=== PATIENT | female | born 1945 | race Caucasian/White ===

== ENCOUNTER 2022-08-11 08:55 | Inpatient (IN) | payer OTHER ==
[2022-08-07 17:25] VITALS: BMI 35.7
[2022-08-11] MEDS ORDERED: ROPIVACAINE HCL/PF 100 MG/20 ML VIAL ONE (10:42)
[2022-08-11] MEDS ORDERED: MIDAZOLAM HCL 2 MG/2 ML SINGLE DOSE VIAL ONE ×2 (10:42→11:58)
[2022-08-11] MEDS ORDERED: CEFAZOLIN 2 GM in DEXTROSE 5%-WATER - 50 ML IVPB ONE (11:00)
[2022-08-11] MEDS ORDERED: TRANEXAMIC ACID 1000 MG/10 ML VIAL IVPUSH ONE (11:00)
[2022-08-11] MEDS ORDERED: BUPIVACAINE HCL 50 ML ONE (11:09)
[2022-08-11] MEDS ORDERED: VANCOMYCIN 1,000 MG VIAL (RESTRICTED TO ID ONLY) ONE (11:20)
[2022-08-11] MEDS ORDERED: oxyCODONE HCL 5 MG TABLET PO PRN (13:06)
[2022-08-11] MEDS ORDERED: ONDANSETRON 4 MG/2 ML VIAL IVPUSH PRN ×2 (13:06→14:01)
[2022-08-11] MEDS ORDERED: LACTATED RINGERS SOLUTION 1,000 ML IV SCH ×2 (13:15→14:15)
[2022-08-11] MEDS ORDERED: PROPOFOL 20 ML ONE ×2 (13:23→14:02)
[2022-08-11] MEDS ORDERED: BUPIVICAINE 0.25%/MORPH PF/KETOROLAC - 51ML DISP.SYRINGE IA ONE ×2 (13:28→13:50)
[2022-08-11] MEDS ORDERED: VANCOMYCIN 1,000 MG VIAL (RESTRICTED TO ID ONLY) IVPB ONE (13:40)
[2022-08-11] MEDS ORDERED: MAG HYDROX/AL HYDROX/SIMETH 30 ML UNIT-DOSE CUP PO PRN (14:01)
[2022-08-11] MEDS ORDERED: MAGNESIUM HYDROX 2400MG/30ML ORAL SUSPENSION 30 ML CUP PO PRN (14:01)
[2022-08-11] MEDS ORDERED: ALPRAZolam 0.25 MG TABLET PO PRN (14:28)
[2022-08-11] MEDS: ACETAMINOPHEN 1000 MG/100 ML BAG IVPB PRN (14:30)
[2022-08-11] MEDS ORDERED: ACETAMINOPHEN INJECTION 100 ML IVPB ONE (14:45)
[2022-08-11] MEDS: CEFAZOLIN SODIUM 2 GM in DEXTROSE 5%-WATER 100 ML IVPB SCH (20:35)
[2022-08-11] MEDS: ROSUVASTATIN CA 10 MG TABLET PO SCH (21:35)
[2022-08-11] MEDS: FAMOTIDINE 20 MG TABLET PO SCH (21:35)
[2022-08-11] MEDS: SENNOSIDES/DOCUSATE COMBO (SENNA PLUS) TABLET (UD) PO SCH (21:35)
[2022-08-11] MEDS ORDERED: GABAPENTIN 300 MG CAPSULE PO SCH (22:00)
[2022-08-11] MEDS ORDERED: FAMOTIDINE 20 MG TABLET PO SCH (22:00)
[2022-08-12] MEDS: CEFAZOLIN SODIUM 2 GM in DEXTROSE 5%-WATER 100 ML IVPB SCH ×2 (04:36→11:14)
[2022-08-12] MEDS: ACETAMINOPHEN 1000 MG/100 ML BAG IVPB PRN ×2 (06:10→13:09)
[2022-08-12] MEDS ORDERED: MAGNESIUM SULF 50% (8.12 MEQ/2 ML-1 GM VIAL) IVPB ONE (08:15)
[2022-08-12 08:26] LABS: HEMATOCRIT 31.3 % (32.4-45.2); HEMOGLOBIN 10.8 G/dL (10.7-15.3); MCH 31.8 pg (25.7-33.7); MCHC 34.5 g/dl (32.0-36.0); MEAN CELL VOLUME 92.2 fl (80-96); MEAN PLT VOLUME 10.9 fl (7.5-11.1); PLATELET COUNT 142.7 10^3/uL (134-434); RDW 13.9 % (11.6-15.6); WHITE BLOOD COUNT 6.6 10^3/uL (4.0-10.8)
[2022-08-12 08:31] LABS: CALCIUM 8.5 mg/dl (8.5-10); CREATININE 0.8 mg/dl (0.55-1.3)
[2022-08-12] MEDS ORDERED: MAGNESIUM 1GM/D5W - 1 GM/100 ML IVPB IVPB ONE (08:45)
[2022-08-12] MEDS: metoPROLOL SUCCINATE 25 MG TAB.SR.24H (FP) PO SCH (09:04)
[2022-08-12] MEDS: LACTOBACILLUS ACIDOPHILUS 1 TABLET PO SCH (09:04)
[2022-08-12] MEDS: MULTIVITAMINS (DAILY MVI) TABLET (FP) PO SCH (09:04)
[2022-08-12] MEDS: FAMOTIDINE 20 MG TABLET PO SCH ×2 (09:04→21:49)
[2022-08-12] MEDS: SENNOSIDES/DOCUSATE COMBO (SENNA PLUS) TABLET (UD) PO SCH ×2 (09:06→21:49)
[2022-08-12] MEDS: PANTOPRAZOLE 40 MG TABLET PO SCH (09:06)
[2022-08-12] MEDS ORDERED: PANTOPRAZOLE 40 MG TABLET PO SCH (10:00)
[2022-08-12] MEDS ORDERED: APIXABAN 2.5 MG TABLET PO SCH (10:00)
[2022-08-12] MEDS ORDERED: ASPIRIN 325 MG TABLET PO SCH ×3 (10:00→22:00)
[2022-08-12] MEDS ORDERED: ENOXAPARIN NA (PORCINE) 80 MG/0.8 ML DISP.SYRIN SQ SCH (12:15)
[2022-08-12] MEDS: ENOXAPARIN NA (PORCINE) 80 MG/0.8 ML DISP.SYRIN SQ SCH ×2 (12:21→21:48)
[2022-08-12] MEDS ORDERED: VANCOMYCIN 1 GM in D5W (PRE-DOCKED) 1,000 MG/250 ML IVPB ONE (15:42)
[2022-08-12] MEDS ORDERED: SODIUM CHLORIDE 500 ML IV STA (15:43)
[2022-08-12] MEDS ORDERED: ACETAMINOPHEN 1000 MG/100 ML BAG IVPB STA (19:31)
[2022-08-12 20:39] LABS: EPI CELLS 6 /uL (0-25.1); HYALINE CASTS 0 /uL (0-3.1); PH,URINE 6.5 (5.0-8.0); URINE APPEARANCE CLEAR; URINE BACTERIA 1 /uL (0-1359); URINE BILIRUBIN NEGATIVE (NEGATIVE); URINE COLOR YELLOW; URINE GLUCOSE (UA) NEGATIVE (NEGATIVE); URINE KETONE NEGATIVE (NEGATIVE); URINE LEUK ESTERASE NEGATIVE (NEGATIVE); URINE NITRITE NEGATIVE (NEGATIVE); URINE PROTEIN NEGATIVE (NEGATIVE); URINE RBC 57 /uL (0-23.9); URINE UROBILINOGEN 0.2 mg/dL (0.2-1.0); URINE WBC 12 /uL (0-25.8)
[2022-08-12] MEDS: MUPIROCIN 2% TOPICAL OINTMENT FOR DECOLONIZATION NS SCH (21:48)
[2022-08-12] MEDS: ROSUVASTATIN CA 10 MG TABLET PO SCH (21:48)
[2022-08-12] MEDS: CHLORHEXIDINE GLUCONATE 4% CLEANSER FOR DECOLONIZATION TP SCH (21:48)
[2022-08-12] MEDS: oxyCODONE HCL 5 MG TABLET PO PRN (21:49)
[2022-08-13] MEDS ORDERED: ACETAMINOPHEN 1000 MG/100 ML BAG IVPB STA (06:11)
[2022-08-13 07:36] LABS: HEMATOCRIT 35.1 % (32.4-45.2); HEMOGLOBIN 11.7 GM/dL (10.7-15.3); MCH 30.1 pg (25.7-33.7); MCHC 33.2 g/dl (32.0-36.0); MEAN CELL VOLUME 90.6 fl (80-96); MEAN PLT VOLUME 11.3 fl (7.5-11.1); PLATELET COUNT 164 10^3/uL (134-434); RBC 3.87 M/mm3 (3.60-5.2); RDW 13.5 % (11.6-15.6); WHITE BLOOD COUNT 9.7 K/mm3 (4.0-10.0)
[2022-08-13] MEDS: ENOXAPARIN NA (PORCINE) 80 MG/0.8 ML DISP.SYRIN SQ SCH ×2 (09:34→21:12)
[2022-08-13] MEDS: LACTOBACILLUS ACIDOPHILUS 1 TABLET PO SCH (09:35)
[2022-08-13] MEDS: PANTOPRAZOLE 40 MG TABLET PO SCH (09:35)
[2022-08-13] MEDS: MULTIVITAMINS (DAILY MVI) TABLET (FP) PO SCH (09:35)
[2022-08-13] MEDS: SENNOSIDES/DOCUSATE COMBO (SENNA PLUS) TABLET (UD) PO SCH ×2 (09:36→21:12)
[2022-08-13] MEDS: FAMOTIDINE 20 MG TABLET PO SCH ×2 (09:36→21:12)
[2022-08-13] MEDS: MUPIROCIN 2% TOPICAL OINTMENT FOR DECOLONIZATION NS SCH ×2 (09:36→21:12)
[2022-08-13] MEDS ORDERED: PIPERACILLIN/TAZOB 3.375 GM 3.375 GM in DEXTROSE 5%-WATER - 50 ML IVPB ONE (10:00)
[2022-08-13] MEDS ORDERED: VANCOMYCIN/WATER FOR INJ (PEG) 1,000 MG/200 ML BAG IVPB ONE (10:00)
[2022-08-13] MEDS: metoPROLOL SUCCINATE 25 MG TAB.SR.24H (FP) PO SCH (11:00)
[2022-08-13] MEDS: SODIUM CHLORIDE 1,000 ML IV SCH (12:41)
[2022-08-13] MEDS: ACETAMINOPHEN 500 MG TABLET (FP) PO SCH ×2 (13:04→18:09)
[2022-08-13] MEDS: oxyCODONE HCL 5 MG TABLET PO PRN ×3 (17:46→22:33)
[2022-08-13] MEDS: PIPERACILLIN/TAZOB 3.375 GM 3.375 GM in DEXTROSE 5%-WATER - 50 ML IVPB SCH (17:48)
[2022-08-13] MEDS ORDERED: ALPRAZolam 0.25 MG TABLET PO PRN (19:23)
[2022-08-13] MEDS ORDERED: MAG HYDROX/AL HYDROX/SIMETH 30 ML UNIT-DOSE CUP PO PRN (19:23)
[2022-08-13] MEDS ORDERED: MAGNESIUM HYDROX 2400MG/30ML ORAL SUSPENSION 30 ML CUP PO PRN (19:23)
[2022-08-13] MEDS: ROSUVASTATIN CA 10 MG TABLET PO SCH (21:11)
[2022-08-13] MEDS: CHLORHEXIDINE GLUCONATE 4% CLEANSER FOR DECOLONIZATION TP SCH (21:12)
[2022-08-14] MEDS: ACETAMINOPHEN 500 MG TABLET (FP) PO SCH ×4 (01:05→18:15)
[2022-08-14] MEDS: PIPERACILLIN/TAZOB 3.375 GM 3.375 GM in DEXTROSE 5%-WATER - 50 ML IVPB SCH ×3 (01:47→18:12)
[2022-08-14] MEDS: SODIUM CHLORIDE 1,000 ML IV SCH ×2 (07:00→11:30)
[2022-08-14 07:03] LABS: BASO % 0.3 % (0-2.0); EOS % 1.2 % (0-4.5); HEMATOCRIT 31.3 % (32.4-45.2); HEMOGLOBIN 10.3 GM/dL (10.7-15.3); LYMPH % 26.2 % (8-40); MCH 30.3 pg (25.7-33.7); MEAN CELL VOLUME 91.8 fl (80-96); MEAN PLT VOLUME 10.9 fl (7.5-11.1); MONO % 9.7 % (3.8-10.2); NEUT % 62.6 % (42.8-82.8); PLATELET COUNT 174 10^3/uL (134-434); RBC 3.41 M/mm3 (3.60-5.2); RDW 13.2 % (11.6-15.6); WHITE BLOOD COUNT 8.4 K/mm3 (4.0-10.0)
[2022-08-14 07:46] LABS: ALBUMIN 2.3 g/dl (3.4-5.0); MAGNESIUM 1.7 mg/dL (1.8-2.4)
[2022-08-14 07:47] LABS: BLOOD UREA NITROGEN 14.9 mg/dL (7-18)
[2022-08-14 07:49] LABS: CREATININE 0.8 mg/dL (0.55-1.3)
[2022-08-14 07:50] LABS: PHOSPHOROUS 2.6 mg/dL (2.5-4.9)
[2022-08-14 07:51] LABS: BILIRUBIN,TOTAL 0.8 mg/dL (0.2-1); TOT PROT 5.1 g/dl (6.4-8.2)
[2022-08-14] MEDS ORDERED: MAGNESIUM OXIDE 400 MG TABLET (FP) PO ONE (08:03)
[2022-08-14] MEDS ORDERED: MAGNESIUM 1GM/D5W 100ML - 100 ML IVPB IVPB ONE (08:30)
[2022-08-14] MEDS: SENNOSIDES/DOCUSATE COMBO (SENNA PLUS) TABLET (UD) PO SCH ×2 (09:31→21:18)
[2022-08-14] MEDS: LACTOBACILLUS ACIDOPHILUS 1 TABLET PO SCH (09:32)
[2022-08-14] MEDS: FAMOTIDINE 20 MG TABLET PO SCH ×2 (09:32→21:18)
[2022-08-14] MEDS: PANTOPRAZOLE 40 MG TABLET PO SCH (09:32)
[2022-08-14] MEDS: MULTIVITAMINS (DAILY MVI) TABLET (FP) PO SCH (09:33)
[2022-08-14] MEDS: ENOXAPARIN NA (PORCINE) 80 MG/0.8 ML DISP.SYRIN SQ SCH ×2 (09:34→21:18)
[2022-08-14] MEDS: MUPIROCIN 2% TOPICAL OINTMENT FOR DECOLONIZATION NS SCH ×2 (09:35→21:19)
[2022-08-14] MEDS: POLYETHYLENE GLYCOL (HEALTHYLAX) 3350 17 GM PACKET PO SCH (09:35)
[2022-08-14] MEDS: oxyCODONE HCL 5 MG TABLET PO PRN (13:16)
[2022-08-14] MEDS: ROSUVASTATIN CA 10 MG TABLET PO SCH (21:18)
[2022-08-14] MEDS: CHLORHEXIDINE GLUCONATE 4% CLEANSER FOR DECOLONIZATION TP SCH (21:19)
[2022-08-15] MEDS: oxyCODONE HCL 5 MG TABLET PO PRN ×3 (00:38→16:02)
[2022-08-15] MEDS: ONDANSETRON 4 MG/2 ML VIAL IVPUSH PRN ×2 (00:39→17:49)
[2022-08-15] MEDS: ACETAMINOPHEN 500 MG TABLET (FP) PO SCH ×4 (00:40→19:02)
[2022-08-15] MEDS: PIPERACILLIN/TAZOB 3.375 GM 3.375 GM in DEXTROSE 5%-WATER - 50 ML IVPB SCH ×2 (01:12→09:46)
[2022-08-15 07:10] LABS: BASO % 0.4 % (0-2.0); EOS % 4.4 % (0-4.5); HEMATOCRIT 28.7 % (32.4-45.2); HEMOGLOBIN 9.6 GM/dL (10.7-15.3); LYMPH % 23.1 % (8-40); MCH 30.5 pg (25.7-33.7); MCHC 33.3 g/dl (32.0-36.0); MEAN CELL VOLUME 91.5 fl (80-96); MEAN PLT VOLUME 10.4 fl (7.5-11.1); MONO % 11.3 % (3.8-10.2); NEUT % 60.8 % (42.8-82.8); PLATELET COUNT 199 10^3/uL (134-434); RBC 3.14 M/mm3 (3.60-5.2); RDW 13.1 % (11.6-15.6); WHITE BLOOD COUNT 7.1 K/mm3 (4.0-10.0)
[2022-08-15] MEDS ORDERED: SODIUM CHLORIDE 0.9% 500 ML INFUS.BAG IV ONE ×2 (07:50→10:50)
[2022-08-15 07:52] LABS: BLOOD UREA NITROGEN 14.5 mg/dL (7-18)
[2022-08-15 07:54] LABS: ALBUMIN 2.1 g/dl (3.4-5.0); CALCIUM 8.2 mg/dL (8.5-10.1); MAGNESIUM 2.1 mg/dL (1.8-2.4)
[2022-08-15 07:57] LABS: PHOSPHOROUS 2.8 mg/dL (2.5-4.9)
[2022-08-15 07:58] LABS: CREATININE 0.7 mg/dL (0.55-1.3); TOT PROT 4.9 g/dl (6.4-8.2)
[2022-08-15 07:59] LABS: BILIRUBIN,TOTAL 0.7 mg/dL (0.2-1)
[2022-08-15] MEDS: ENOXAPARIN NA (PORCINE) 80 MG/0.8 ML DISP.SYRIN SQ SCH (09:10)
[2022-08-15] MEDS: LACTOBACILLUS ACIDOPHILUS 1 TABLET PO SCH (09:10)
[2022-08-15] MEDS: PANTOPRAZOLE 40 MG TABLET PO SCH (09:10)
[2022-08-15] MEDS: POLYETHYLENE GLYCOL (HEALTHYLAX) 3350 17 GM PACKET PO SCH (09:10)
[2022-08-15] MEDS: SENNOSIDES/DOCUSATE COMBO (SENNA PLUS) TABLET (UD) PO SCH ×2 (09:10→21:24)
[2022-08-15] MEDS: metoPROLOL SUCCINATE 25 MG TAB.SR.24H (FP) PO SCH (09:11)
[2022-08-15] MEDS: MULTIVITAMINS (DAILY MVI) TABLET (FP) PO SCH (09:11)
[2022-08-15] MEDS: FAMOTIDINE 20 MG TABLET PO SCH ×2 (09:12→21:24)
[2022-08-15] MEDS: MUPIROCIN 2% TOPICAL OINTMENT FOR DECOLONIZATION NS SCH ×2 (09:50→21:28)
[2022-08-15] MEDS: ROSUVASTATIN CA 10 MG TABLET PO SCH (21:24)
[2022-08-15] MEDS: APIXABAN 5 MG TABLET PO SCH (21:24)
[2022-08-15] MEDS: CHLORHEXIDINE GLUCONATE 4% CLEANSER FOR DECOLONIZATION TP SCH (21:28)
[2022-08-16] MEDS: ACETAMINOPHEN 500 MG TABLET (FP) PO SCH ×5 (00:42→20:17)
[2022-08-16] MEDS: oxyCODONE HCL 5 MG TABLET PO PRN ×3 (00:42→16:32)
[2022-08-16 07:00] LABS: BASO % 0.4 % (0-2.0); EOS % 5.8 % (0-4.5); HEMATOCRIT 29.8 % (32.4-45.2); HEMOGLOBIN 9.7 GM/dL (10.7-15.3); LYMPH % 33.7 % (8-40); MCHC 32.4 g/dl (32.0-36.0); MEAN CELL VOLUME 92.4 fl (80-96); MEAN PLT VOLUME 9.7 fl (7.5-11.1); MONO % 10.5 % (3.8-10.2); NEUT % 49.6 % (42.8-82.8); PLATELET COUNT 241 10^3/uL (134-434); RBC 3.23 M/mm3 (3.60-5.2); RDW 12.9 % (11.6-15.6)
[2022-08-16 07:19] LABS: CALCIUM 8.6 mg/dL (8.5-10.1)
[2022-08-16 07:20] LABS: ALBUMIN 2.1 g/dl (3.4-5.0); BLOOD UREA NITROGEN 14.7 mg/dL (7-18)
[2022-08-16 07:23] LABS: CREATININE 0.6 mg/dL (0.55-1.3)
[2022-08-16 07:25] LABS: BILIRUBIN,TOTAL 0.8 mg/dL (0.2-1); TOT PROT 5.1 g/dl (6.4-8.2)
[2022-08-16] MEDS: LACTOBACILLUS ACIDOPHILUS 1 TABLET PO SCH (09:22)
[2022-08-16] MEDS: SENNOSIDES/DOCUSATE COMBO (SENNA PLUS) TABLET (UD) PO SCH ×2 (09:22→21:16)
[2022-08-16] MEDS: FAMOTIDINE 20 MG TABLET PO SCH ×2 (09:22→21:16)
[2022-08-16] MEDS: APIXABAN 5 MG TABLET PO SCH ×2 (09:22→21:16)
[2022-08-16] MEDS: MULTIVITAMINS (DAILY MVI) TABLET (FP) PO SCH (09:22)
[2022-08-16] MEDS: POLYETHYLENE GLYCOL (HEALTHYLAX) 3350 17 GM PACKET PO SCH (09:22)
[2022-08-16] MEDS: metoPROLOL SUCCINATE 25 MG TAB.SR.24H (FP) PO SCH (09:23)
[2022-08-16] MEDS: PANTOPRAZOLE 40 MG TABLET PO SCH (09:23)
[2022-08-16] MEDS: MUPIROCIN 2% TOPICAL OINTMENT FOR DECOLONIZATION NS SCH (16:31)
[2022-08-16] MEDS ORDERED: MAG HYDROX/AL HYDROX/SIMETH 30 ML UNIT-DOSE CUP PO PRN (19:24)
[2022-08-16] MEDS ORDERED: ONDANSETRON 4 MG/2 ML VIAL IVPUSH PRN (19:24)
[2022-08-16] MEDS ORDERED: MAGNESIUM HYDROX 2400MG/30ML ORAL SUSPENSION 30 ML CUP PO PRN (19:24)
[2022-08-16] MEDS: ROSUVASTATIN CA 10 MG TABLET PO SCH (21:16)
[2022-08-16] MEDS ORDERED: MUPIROCIN 2% TOPICAL OINTMENT FOR DECOLONIZATION NS SCH (22:00)
[2022-08-16] MEDS ORDERED: CHLORHEXIDINE GLUCONATE 4% CLEANSER FOR DECOLONIZATION TP SCH (22:00)
[2022-08-17] MEDS ORDERED: ACETAMINOPHEN 500 MG TABLET (FP) PO SCH (01:00)
[2022-08-17] MEDS: ACETAMINOPHEN 500 MG TABLET (FP) PO SCH ×4 (02:03→19:53)
[2022-08-17] MEDS ORDERED: traMADol HCL 50 MG TABLET PO ONE (08:15)
[2022-08-17 08:34] LABS: BASO % 0.4 % (0-2.0); HEMATOCRIT 28.1 % (32.4-45.2); HEMOGLOBIN 9.6 GM/dL (10.7-15.3); LYMPH % 26.5 % (8-40); MCH 31.3 pg (25.7-33.7); MCHC 34.2 g/dl (32.0-36.0); MEAN CELL VOLUME 91.5 fl (80-96); MEAN PLT VOLUME 8.9 fl (7.5-11.1); MONO % 12.2 % (3.8-10.2); NEUT % 55.9 % (42.8-82.8); PLATELET COUNT 271 10^3/uL (134-434); RBC 3.07 M/mm3 (3.60-5.2); RDW 13.1 % (11.6-15.6); WHITE BLOOD COUNT 7.3 K/mm3 (4.0-10.0)
[2022-08-17 08:55] LABS: ALBUMIN 2.1 g/dl (3.4-5.0); CALCIUM 8.6 mg/dL (8.5-10.1); MAGNESIUM 2.1 mg/dL (1.8-2.4)
[2022-08-17 08:57] LABS: CREATININE 0.6 mg/dL (0.55-1.3)
[2022-08-17 08:59] LABS: BILIRUBIN,TOTAL 0.5 mg/dL (0.2-1); TOT PROT 5.2 g/dl (6.4-8.2)
[2022-08-17] MEDS ORDERED: metoPROLOL SUCCINATE 25 MG TAB.SR.24H (FP) PO SCH (10:00)
[2022-08-17] MEDS ORDERED: POLYETHYLENE GLYCOL (HEALTHYLAX) 3350 17 GM PACKET PO SCH (10:00)
[2022-08-17] MEDS: MULTIVITAMINS (DAILY MVI) TABLET (FP) PO SCH (10:04)
[2022-08-17] MEDS: PANTOPRAZOLE 40 MG TABLET PO SCH (10:04)
[2022-08-17] MEDS: APIXABAN 5 MG TABLET PO SCH ×2 (10:04→21:43)
[2022-08-17] MEDS: FAMOTIDINE 20 MG TABLET PO SCH ×2 (10:05→21:43)
[2022-08-17] MEDS: LACTOBACILLUS ACIDOPHILUS 1 TABLET PO SCH (10:05)
[2022-08-17] MEDS: metoPROLOL SUCCINATE 25 MG TAB.SR.24H (FP) PO SCH (10:05)
[2022-08-17] MEDS: SENNOSIDES/DOCUSATE COMBO (SENNA PLUS) TABLET (UD) PO SCH ×2 (10:05→21:43)
[2022-08-17] MEDS: POLYETHYLENE GLYCOL (HEALTHYLAX) 3350 17 GM PACKET PO SCH ×2 (13:16→21:43)
[2022-08-17] MEDS: ROSUVASTATIN CA 10 MG TABLET PO SCH (21:43)
[2022-08-18] MEDS: ACETAMINOPHEN 500 MG TABLET (FP) PO SCH ×4 (01:40→21:18)
[2022-08-18] MEDS: oxyCODONE HCL 5 MG TABLET PO PRN ×2 (06:16→14:45)
[2022-08-18 08:45] LABS: BASO % 0.6 % (0-2.0); EOS % 6.7 % (0-4.5); HEMOGLOBIN 9.7 GM/dL (10.7-15.3); LYMPH % 24.4 % (8-40); MCH 30.5 pg (25.7-33.7); MCHC 33.4 g/dl (32.0-36.0); MEAN CELL VOLUME 91.4 fl (80-96); MEAN PLT VOLUME 8.7 fl (7.5-11.1); MONO % 10.1 % (3.8-10.2); NEUT % 58.2 % (42.8-82.8); PLATELET COUNT 358 10^3/uL (134-434); RBC 3.18 M/mm3 (3.60-5.2); RDW 13.2 % (11.6-15.6)
[2022-08-18 09:16] LABS: ALBUMIN 2.1 g/dl (3.4-5.0); BLOOD UREA NITROGEN 13.7 mg/dL (7-18); CALCIUM 8.8 mg/dL (8.5-10.1); MAGNESIUM 2.1 mg/dL (1.8-2.4)
[2022-08-18 09:20] LABS: CREATININE 0.6 mg/dL (0.55-1.3)
[2022-08-18 09:22] LABS: BILIRUBIN,TOTAL 0.6 mg/dL (0.2-1); TOT PROT 5.4 g/dl (6.4-8.2)
[2022-08-18] MEDS: metoPROLOL SUCCINATE 25 MG TAB.SR.24H (FP) PO SCH (09:52)
[2022-08-18] MEDS: SENNOSIDES/DOCUSATE COMBO (SENNA PLUS) TABLET (UD) PO SCH ×2 (09:52→21:18)
[2022-08-18] MEDS: MULTIVITAMINS (DAILY MVI) TABLET (FP) PO SCH (09:53)
[2022-08-18] MEDS: PANTOPRAZOLE 40 MG TABLET PO SCH (09:53)
[2022-08-18] MEDS: APIXABAN 5 MG TABLET PO SCH ×2 (09:53→21:18)
[2022-08-18] MEDS: FAMOTIDINE 20 MG TABLET PO SCH ×2 (09:53→21:18)
[2022-08-18] MEDS: POLYETHYLENE GLYCOL (HEALTHYLAX) 3350 17 GM PACKET PO SCH ×2 (09:55→21:19)
[2022-08-18] MEDS: LACTOBACILLUS ACIDOPHILUS 1 TABLET PO SCH (09:55)
[2022-08-18] MEDS ORDERED: SODIUM CHLORIDE 500 ML IV STA (11:13)
[2022-08-18] MEDS ORDERED: SODIUM CHLORIDE 1,000 ML IV SCH (16:30)
[2022-08-18] MEDS: ALPRAZolam 0.25 MG TABLET PO PRN (21:18)
[2022-08-18] MEDS: ROSUVASTATIN CA 10 MG TABLET PO SCH (21:18)
[2022-08-19] MEDS: ACETAMINOPHEN 500 MG TABLET (FP) PO SCH ×4 (02:00→20:10)
[2022-08-19] MEDS: oxyCODONE HCL 5 MG TABLET PO PRN ×2 (06:42→21:03)
[2022-08-19 07:51] LABS: BASO % 0.5 % (0-2.0); EOS % 6.4 % (0-4.5); HEMATOCRIT 26.7 % (32.4-45.2); HEMOGLOBIN 8.9 GM/dL (10.7-15.3); LYMPH % 30.1 % (8-40); MCH 30.6 pg (25.7-33.7); MCHC 33.5 g/dl (32.0-36.0); MEAN CELL VOLUME 91.4 fl (80-96); MEAN PLT VOLUME 8.5 fl (7.5-11.1); MONO % 10.5 % (3.8-10.2); NEUT % 52.5 % (42.8-82.8); PLATELET COUNT 423 10^3/uL (134-434); RBC 2.92 M/mm3 (3.60-5.2); RDW 12.9 % (11.6-15.6); WHITE BLOOD COUNT 7.3 K/mm3 (4.0-10.0)
[2022-08-19 08:12] LABS: CALCIUM 8.6 mg/dL (8.5-10.1)
[2022-08-19 08:13] LABS: ALBUMIN 2.1 g/dl (3.4-5.0); BLOOD UREA NITROGEN 14.6 mg/dL (7-18); MAGNESIUM 2.1 mg/dL (1.8-2.4)
[2022-08-19 08:16] LABS: CREATININE 0.5 mg/dL (0.55-1.3)
[2022-08-19 08:17] LABS: BILIRUBIN,TOTAL 0.6 mg/dL (0.2-1)
[2022-08-19 08:18] LABS: TOT PROT 5.4 g/dl (6.4-8.2)
[2022-08-19] MEDS: metoPROLOL SUCCINATE 25 MG TAB.SR.24H (FP) PO SCH (09:19)
[2022-08-19] MEDS: FAMOTIDINE 20 MG TABLET PO SCH ×2 (09:19→21:04)
[2022-08-19] MEDS: SENNOSIDES/DOCUSATE COMBO (SENNA PLUS) TABLET (UD) PO SCH ×2 (09:19→21:03)
[2022-08-19] MEDS: PANTOPRAZOLE 40 MG TABLET PO SCH (09:19)
[2022-08-19] MEDS: APIXABAN 5 MG TABLET PO SCH ×2 (09:20→21:03)
[2022-08-19] MEDS: MULTIVITAMINS (DAILY MVI) TABLET (FP) PO SCH (09:20)
[2022-08-19] MEDS: POLYETHYLENE GLYCOL (HEALTHYLAX) 3350 17 GM PACKET PO SCH ×3 (09:20→21:04)
[2022-08-19] MEDS: LACTOBACILLUS ACIDOPHILUS 1 TABLET PO SCH (09:20)
[2022-08-19] MEDS: ALPRAZolam 0.25 MG TABLET PO PRN (21:03)
[2022-08-19] MEDS: ROSUVASTATIN CA 10 MG TABLET PO SCH (21:03)
[2022-08-20] MEDS: ACETAMINOPHEN 500 MG TABLET (FP) PO SCH ×3 (03:00→13:15)
[2022-08-20 03:56] VITALS: RESP 18
[2022-08-20] MEDS: oxyCODONE HCL 5 MG TABLET PO PRN (05:44)
[2022-08-20 08:19] LABS: BASO % 0.7 % (0-2.0); EOS % 6.7 % (0-4.5); HEMATOCRIT 28.8 % (32.4-45.2); HEMOGLOBIN 9.5 GM/dL (10.7-15.3); LYMPH % 22.8 % (8-40); MCH 30.4 pg (25.7-33.7); MCHC 33.1 g/dl (32.0-36.0); MEAN CELL VOLUME 91.8 fl (80-96); MEAN PLT VOLUME 8.5 fl (7.5-11.1); MONO % 10.9 % (3.8-10.2); NEUT % 58.9 % (42.8-82.8); PLATELET COUNT 460 10^3/uL (134-434); RBC 3.13 M/mm3 (3.60-5.2); RDW 13.1 % (11.6-15.6); WHITE BLOOD COUNT 6.7 K/mm3 (4.0-10.0)
[2022-08-20 08:56] LABS: ALBUMIN 2.2 g/dl (3.4-5.0); BLOOD UREA NITROGEN 12.9 mg/dL (7-18); CREATININE 0.5 mg/dL (0.55-1.3)
[2022-08-20 08:57] LABS: BILIRUBIN,TOTAL 0.5 mg/dL (0.2-1); TOT PROT 5.5 g/dl (6.4-8.2)
[2022-08-20] MEDS: FAMOTIDINE 20 MG TABLET PO SCH (09:32)
[2022-08-20] MEDS: PANTOPRAZOLE 40 MG TABLET PO SCH (09:32)
[2022-08-20] MEDS: APIXABAN 5 MG TABLET PO SCH (09:32)
[2022-08-20] MEDS: MULTIVITAMINS (DAILY MVI) TABLET (FP) PO SCH (09:32)
[2022-08-20] MEDS: LACTOBACILLUS ACIDOPHILUS 1 TABLET PO SCH (09:32)
[2022-08-20] MEDS: metoPROLOL SUCCINATE 25 MG TAB.SR.24H (FP) PO SCH (09:34)
[2022-08-20] MEDS: POLYETHYLENE GLYCOL (HEALTHYLAX) 3350 17 GM PACKET PO SCH (09:34)
[2022-08-20] MEDS: SENNOSIDES/DOCUSATE COMBO (SENNA PLUS) TABLET (UD) PO SCH (09:34)
[2022-08-20 15:49] VITALS: BP 96/64; PULSE 67; TEMP 98.2
== END 2022-08-20 18:45 | disposition home health service (06) | DRG 470 ==
LOC: FASUSAT 08:55 → FM/S 16:15 → FASUSAT 08-12 18:54 → JICU 08-12 18:55 → J4S 08-15 17:41
PROVIDERS: ADMIT Internal Medicine Pulmonary Disease; ATTEND Nurse Practitioner Acute Care
PROC: 8E0Y0CZ Robotic Assisted Procedure of Lower Extremity, Open Approach (ICD-10-PCS; 2022-08-11)
PROC: 0SR904A Replacement of Right Hip Joint with Ceramic on Polyethylene Synthetic Substitute, Uncemented, Open Approach (ICD-10-PCS; principal; 2022-08-11 12:24)
DX: M16.11 Unilateral primary osteoarthritis, right hip (principal); I26.99 Other pulmonary embolism without acute cor pulmonale; N39.0 Urinary tract infection, site not specified; I27.82 Chronic pulmonary embolism; J98.11 Atelectasis; T81.44XA Sepsis following a procedure, initial encounter; T81.40XA Infection following a procedure, unspecified, initial encounter; I10 Essential (primary) hypertension; K21.9 Gastro-esophageal reflux disease without esophagitis; F41.9 Anxiety disorder, unspecified; Z86.718 Personal history of other venous thrombosis and embolism; Z79.01 Long term (current) use of anticoagulants; E78.5 Hyperlipidemia, unspecified; K59.00 Constipation, unspecified; D64.9 Anemia, unspecified; R00.0 Tachycardia, unspecified; Y83.8 Other surgical procedures as the cause of abnormal reaction of the patient, or of later complication, without mention of misadventure at the time of the procedure
CPT/HCPCS: 0241U-QW; 36415; 71045-TC-FY; 71275-TC; 73502-TC-RT-FY; 80048; 80053; 81003; 83036; 83735; 84100; 84439; 84443; 84484; 85025; 85027; 85379; 86140; 87040; 87086; 87186; 88305-TC; 88311-TC; 93005; 93010; 93306-TC; 93970-TC; 94760; 97010-GP; 97116-GP; 97162-GP; C9803-CS; Q9967; U0003; U0005

== ENCOUNTER 2023-05-15 05:58 | Day surgery (SDC) | payer OTHER ==
[2023-05-14 12:04] VITALS: BMI 36.1
[2023-05-15] MEDS ORDERED: LIDOCAINE HCL 1%, 10 MG/ML (10ML VIAL) MDV ONE (07:17)
[2023-05-15] MEDS ORDERED: HEPARIN NA (PORCINE) 5,000 UNITS/ML 1ML VIAL ONE (07:17)
[2023-05-15] MEDS ORDERED: LIDOCAINE HCL 1%, 10 MG/ML (20ML VIAL) NR ONE ×2 (07:24→08:29)
[2023-05-15] MEDS ORDERED: ceFAZolin SODIUM 1 GM VIAL IVPB ONE ×2 (07:24→08:22)
[2023-05-15] MEDS ORDERED: HEPARIN NA (PORCINE) 5,000 UNITS/ML 1ML VIAL SQ ONE ×2 (07:25→08:41)
[2023-05-15] MEDS ORDERED: PROPOFOL 20 ML ONE (07:30)
[2023-05-15] MEDS ORDERED: MIDAZOLAM HCL 2 MG/2 ML SINGLE DOSE VIAL ONE (07:30)
[2023-05-15] MEDS ORDERED: oxyCODONE HCL 5 MG TABLET PO PRN (08:56)
[2023-05-15] MEDS ORDERED: PROMETHAZINE HCL 25 MG/1 ML VIAL IVPB PRN (08:56)
[2023-05-15] MEDS ORDERED: ONDANSETRON 4 MG/2 ML VIAL IVPUSH PRN (08:56)
[2023-05-15 10:18] VITALS: RESP 18
[2023-05-15 13:14] VITALS: BP 106/60; PULSE 80; TEMP 98
== END 2023-05-15 11:30 | disposition home or self-care (01) ==
LOC: JASU-SURG 05:58
PROVIDERS: ATTEND Surgery Vascular Surgery
PROC: 06H03DZ Insertion of Intraluminal Device into Inferior Vena Cava, Percutaneous Approach (ICD-10-PCS; principal; 2023-05-15 08:00)
DX: Z86.718 Personal history of other venous thrombosis and embolism (principal)
CPT/HCPCS: 37191; L8699; 76000-TC-FY; 94760; C1880; J1644

== ENCOUNTER 2023-05-22 08:35 | Day surgery (SDC) | payer OTHER ==
[2023-05-18 13:58] VITALS: BMI 38.1
[2023-05-22] MEDS ORDERED: CEFAZOLIN 2 GM in DEXTROSE 5%-WATER - 50 ML IVPB ONE (10:00)
[2023-05-22] MEDS ORDERED: TRANEXAMIC ACID 1000 MG/10 ML VIAL IVPUSH ONE (11:00)
[2023-05-22] MEDS ORDERED: BUPIVACAINE LIPOSOME/PF (EXPAREL) 266 MG/20 ML VIAL ONE (13:12)
[2023-05-22] MEDS ORDERED: MIDAZOLAM HCL 2 MG/2 ML SINGLE DOSE VIAL ONE ×2 (13:12→15:30)
[2023-05-22] MEDS ORDERED: BUPIVACAINE HCL/PF 0.5% (5MG/ML) 10 ML VIAL ONE (13:12)
[2023-05-22] MEDS ORDERED: VANCOMYCIN 1,000 MG VIAL (RESTRICTED TO ID ONLY) ONE (13:20)
[2023-05-22] MEDS ORDERED: TRANEXAMIC ACID 1000 MG/10 ML VIAL ONE (14:12)
[2023-05-22] MEDS ORDERED: ONDANSETRON 4 MG/2 ML VIAL ONE (14:12)
[2023-05-22] MEDS ORDERED: DEXAMETHASONE SOD PHOSPHATE 4 MG/1 ML VIAL ONE (14:12)
[2023-05-22] MEDS ORDERED: ceFAZolin SODIUM 1 GM VIAL ONE (14:12)
[2023-05-22] MEDS ORDERED: PROPOFOL 40 ML ONE (14:29)
[2023-05-22] MEDS ORDERED: BUPIVICAINE 0.25%/MORPH PF/KETOROLAC - 51ML DISP.SYRINGE IA ONE ×2 (15:10→15:48)
[2023-05-22] MEDS ORDERED: MAG HYDROX/AL HYDROX/SIMETH 30 ML UNIT-DOSE CUP PO PRN (16:48)
[2023-05-22] MEDS ORDERED: MAGNESIUM HYDROX 2400MG/30ML ORAL SUSPENSION 30 ML CUP PO PRN (16:48)
[2023-05-22] MEDS ORDERED: ONDANSETRON 4 MG/2 ML VIAL IVPUSH PRN ×2 (16:48→16:50)
[2023-05-22] MEDS ORDERED: oxyCODONE HCL 5 MG TABLET PO PRN ×2 (16:55→16:56)
[2023-05-22] MEDS: ACETAMINOPHEN 1000 MG/100 ML BAG IVPB SCH (17:00)
[2023-05-22] MEDS ORDERED: LACTATED RINGERS SOLUTION 1,000 ML IV SCH (17:00)
[2023-05-22] MEDS: CEFAZOLIN SODIUM 2 GM in DEXTROSE 5%-WATER 100 ML IVPB SCH (21:33)
[2023-05-22] MEDS: METOPROLOL TARTRATE 25 MG TABLET (FP) PO SCH (21:34)
[2023-05-22] MEDS: GABAPENTIN 300 MG CAPSULE PO SCH (21:34)
[2023-05-22] MEDS: SENNOSIDES/DOCUSATE COMBO (SENNA PLUS) TABLET (UD) PO SCH (21:34)
[2023-05-22] MEDS: FAMOTIDINE 20 MG TABLET PO SCH (21:34)
[2023-05-22] MEDS ORDERED: ROSUVASTATIN CA 10 MG TABLET PO SCH (22:00)
[2023-05-23] MEDS: ACETAMINOPHEN 1000 MG/100 ML BAG IVPB SCH ×2 (00:30→09:36)
[2023-05-23 03:03] VITALS: RESP 18
[2023-05-23] MEDS: CEFAZOLIN SODIUM 2 GM in DEXTROSE 5%-WATER 100 ML IVPB SCH ×2 (06:41→14:10)
[2023-05-23 08:22] LABS: HEMATOCRIT 35.4 % (32.4-45.2); HEMOGLOBIN 11.6 G/dL (10.7-15.3); MCH 29.5 pg (25.7-33.7); MCHC 32.9 g/dl (32.0-36.0); MEAN CELL VOLUME 89.9 fl (80-96); MEAN PLT VOLUME 11.4 fl (7.5-11.1); PLATELET COUNT 175.4 10^3/uL (134-434); RBC 3.94 10^6/uL (3.60-5.2)
[2023-05-23 08:35] LABS: BLOOD UREA NITROGEN 23.2 mg/dl (7-18); POTASSIUM 4.6 mmol/L (3.5-5.1)
[2023-05-23] MEDS: SENNOSIDES/DOCUSATE COMBO (SENNA PLUS) TABLET (UD) PO SCH (09:36)
[2023-05-23] MEDS: FAMOTIDINE 20 MG TABLET PO SCH (09:36)
[2023-05-23] MEDS: METOPROLOL TARTRATE 25 MG TABLET (FP) PO SCH (09:36)
[2023-05-23] MEDS: GABAPENTIN 300 MG CAPSULE PO SCH (09:36)
[2023-05-23] MEDS ORDERED: PANTOPRAZOLE 40 MG TABLET PO SCH (10:00)
[2023-05-23] MEDS ORDERED: APIXABAN 2.5 MG TABLET PO SCH (10:00)
[2023-05-23] MEDS ORDERED: MULTIVITAMINS (DAILY MVI) TABLET (FP) PO SCH (10:00)
[2023-05-23 12:06] VITALS: BP 114/50; PULSE 73; TEMP 98.4
== END 2023-05-23 14:40 | disposition home or self-care (01) ==
LOC: FASUSAT 08:35 → FM/S 17:46 → FASUSAT 05-23 14:40
PROC: 8E0Y0CZ Robotic Assisted Procedure of Lower Extremity, Open Approach (ICD-10-PCS; 2023-05-22)
PROC: 0SRD0JA Replacement of Left Knee Joint with Synthetic Substitute, Uncemented, Open Approach (ICD-10-PCS; principal; 2023-05-22 14:37)
DX: M17.12 Unilateral primary osteoarthritis, left knee (principal)
CPT/HCPCS: 20985; 27447; C1776; S2900; 36415; 73560-TC-LT-FY; 80048; 83036; 85027; 88305-TC; 88311-TC; 94760; 97116-GP; 97161-GP

== ENCOUNTER 2025-04-04 08:27 | Day surgery (SDC) | payer OTHER ==
[2025-03-31 16:44] VITALS: BMI 36.1
[2025-04-04 08:48] VITALS: RESP 18
[2025-04-04 11:05] VITALS: BP 138/89; PULSE 87; TEMP 98
== END 2025-04-04 11:10 | disposition home or self-care (01) ==
LOC: FASU-ENDO 08:27
PROVIDERS: ATTEND Internal Medicine Gastroenterology
PROC: 0DJD8ZZ Inspection of Lower Intestinal Tract, Via Natural or Artificial Opening Endoscopic (ICD-10-PCS; principal; 2025-04-04 10:13)
DX: Z12.11 Encounter for screening for malignant neoplasm of colon (principal)